=== PATIENT | female | born 1965 | race Caucasian/White ===

== ENCOUNTER 2016-10-21 16:33 | Emergency (ER) | payer OTHER ==
[2016-10-21] MEDS ORDERED: ASPIRIN 81 MG CHEW TAB PO ONE (17:06)
[2016-10-21] MEDS ORDERED: hydrALAZINE HCL 20 MG/1 ML IVP ONE ×2 (17:07→18:03)
[2016-10-21 17:14] LABS: BASOPHILS % 0.8 (0.0-1.5); EOSINOPHILS % 4.6 % (0.0-6.8); MEAN CORPUSCULAR HEMOGLOBIN 28.3 pg (28.0-34.0); MEAN CORPUSCULAR VOLUME 87.3 fl (80.0-100.0); NEUTROPHILS # 5.4 # k/uL (1.4-7.7)
[2016-10-21 17:26] LABS: eGFR (African) > 60; eGFR (Non-African) > 60
--- NOTE | 2016-10-21 19:09 | ED Physician Documentation ---
Chest Pain - HISTORIAN Historian: patient - HPI Stated Complaint: chest pain Chief Complaint: Chest Pain Onset: days ago (2) Timing: sudden onset Duration: sudden-onset Last known Well Date: 10/18/16 Last Known Well Time: 00:00 Context: activity Severity: moderate Quality: tightness Chest Pain Radiation: no radiation Chest Pain Signs/Symptoms: denies: nausea, vomiting, diaphoresis Worsened By: exertion Relieved By: nothing Further Comments: no - ROS CONST: none MS/LYMPH: none GI/: none EYES/ENT: none SKIN/ENDO: none NEURO/PSYCH: none - PAST HX TN risk factors: hypertension DVT/PE Risk Factors: none TAD/AAA risk factors: none Neuro deficit: none GI disease: none Lung disease: none Surgeries/Procedures: none Immunizations: referred to PCP Allergies/Adverse Reactions: Allergies Allergy/AdvReac Type Severity Reaction Status Date / Time No Known Drug Allergies Allergy Verified 10/21/16 16:50 Home Medications: Ambulatory Orders Medication Instructions Recorded NK [NK] 10/21/16 - SOCIAL HX Smoking History: non-smoker Alcohol Use: none Drug Use: none - FAMILY HX Family HX: none - VITAL SIGNS Vital Signs: Vital Signs Temp Pulse Resp BP Pulse Ox 98.4 F 90 19 215/114 92 10/21/16 16:35 10/21/16 19:00 10/21/16 16:35 10/21/16 16:35 10/21/16 19:00 - REVIEWED ASSESSMENTS Nursing Assessment Reviewed: Yes Vitals Reviewed: Yes Progress - Results/Orders Results/Orders: cardiac w/u ordered - Progress Progress: pt. given total of 30 mg hydralazine ivp with reduction of bp to 140/82 with resolution of chest discomfort Critical Care Note - Critical Care Note Total Time (mins): 0 ED Results Lab/Radiology - Lab Results Lab Results: Lab Results 10/21/16 10/21/16 10/21/16 17:10 17:10 17:10 WBC 8.70 K/ul K/ul (4.00-12.00) RBC 4.81 M/ul M/ul (3.90-5.20) Hgb 13.6 g/dL g/dL (12.0-16.0) Hct 42.0 % % (34.5-46.5) MCV 87.3 fl fl (80.0-100.0) MCH 28.3 pg pg (28.0-34.0) MCHC 32.5 g/dL g/dL (30.0-36.0) RDW 12.8 % % (11.3-14.3) Plt Count 301 K/mm3 K/mm3 (130-400) Neut % (Auto) 62.5 % % (39.0-79.0) Lymph % (Auto) 26.9 % % (16.0-50.0) [place] % (Auto) 4.0 % % (0.0-11.0) Eos % (Auto) 4.6 % % (0.0-6.8) Baso % (Auto) 0.8 (0.0-1.5) Neut # (Auto) 5.4 # k/uL # k/uL (1.4-7.7) Lymph # (Auto) 2.3 # k/uL # k/uL (0.6-4.0) [place] # (Auto) 0.4 # k/uL # k/uL (0.0-0.9) Eos # (Auto) 0.4 # k/uL # k/uL (0.0-0.6) Baso # (Auto) 0.1 # k/uL # k/uL (0.0-0.5) Reactive Lymphs % 1.3 % % (0.0-5.0) Reactive Lymphs # 0.1 # k/uL # k/uL (0.0-0.8) Sodium 141 mmol/L mmol/L (136-145) Potassium 3.8 mmol/L mmol/L (3.5-5.0) Chloride 106 mmol/L mmol/L (98-110) Carbon Dioxide 28 mmol/L mmol/L (20-32) BUN 16 mg/dL mg/dL (10-26) Creatinine 1.0 mg/dL mg/dL (0.4-1.5) Estimated Creat Clear 115 Est GFR ( Amer) > 60 (60 - ) Est GFR (Non-Af Amer) > 60 (60 - ) Glucose 155 mg/dL H mg/dL (70-99) Calcium 9.8 mg/dL mg/dL (8.5-10.5) Total Bilirubin 0.7 mg/dL mg/dL (0.2-1.2) AST 17 U/L U/L (0-41) ALT 17 U/L U/L (0-45) Alkaline Phosphatase 81 U/L U/L (46-116) Troponin I < 0.03 ng/mL L ng/mL (0.03-0.06) Total Protein 7.8 g/dL g/dL (6.0-8.5) Albumin 5.0 g/dL g/dL (3.0-5.5) - Radiology Radiology Impressions: cxr neg - Orders Orders: ED Orders Category Date Time Status Continuous EKG monitoring Q30M Care 10/21/16 17:06 Active Continuous Pulse Oximetry Q30M Care 10/21/16 17:[address] IV Lock 1T Care 10/21/16 17:07 Active CHEST 1 VIEW [RAD] Stat Exams 10/21/16 17:06 Taken CBC/PLATELET/DIFF Routine Lab 10/21/16 17:10 Completed CMP Routine Lab 10/21/16 17:10 Completed TROPONIN I (cTnI) Stat Lab 10/21/16 17:10 Completed Aspirin Med 10/21/16 17:06 Discontinued 324 mg PO NOW ONE hydrALAZINE HCL [Apresoline] Med 10/21/16 18:03 Discontinued 10 mg IVP NOW ONE hydrALAZINE HCL [Apresoline] Med 10/21/16 17:07 Discontinued 20 mg IVP NOW ONE EKG WITH COMPARISON Stat Ther 10/21/16 17:06 Ordered Chest Pain Physical Exam - EXAM General Appearance: alert, mild distress EENT: eye inspection normal, ENT inspection normal, pharynx normal, no signs of dehydration, [place], no nystagmus, TM's nml Neck: nml inspection, no carotid bruit Respiratory: no resp. distress, chest non-tender, nml breath sounds CVS: reg. rate & rhythm, no murmur, no gallop, no friction rub, pulses full, pulses equal Abdomen: soft, no organomegaly, normal bowel sounds, no abdominal bruit, no distension, non-tender Skin: warm/dry, normal color Extremities: non-tender, normal range of motion, no evidence of injury, no edema Neuro: oriented X3, CN's nml as tested, motor nml, sensation nml, mood/affect nml, cognition normal Discharge Clincal Impression: Accelerated hypertension Referrals: Jessica Morse MD [Primary Care Provider] - 2 Days Home Medications: Ambulatory Orders NK [NK] 10/21/16 Comments: Discharged in stable condition to family with script for Hydralazine 25 mg p.o. bid #30 no refill Condition: Stable Disposition: 01 HOME, SELF-CARE Decision to Admit: NO Decision Time: 19:09
--- NOTE | 2016-10-21 19:18 | Diagnostic Imaging Report ---
MATT POE [facility] [address] [facility] [address] [place] [address]. [id number] Report Submission Date: Oct 21, 2016 5:27:43 PM CDT Patient Study Name: LOGAN ABRAHAM Date: Oct 21, 2016 5:11:08 PM CDT Modality Type: CR Gender: F Description: CHEST : 61 Institution: [facility] Physician: MATT POE Chest AP portable at 1711 hours of October 21, 2016 . Clinical history: Chest pain for 1 day Normal heart shadow and mediastinum. Clear lungs without acute infiltrate or pleural effusion. No pneumothorax. Impression: No active pulmonary pathology Electronically signed on Oct 21, 2016 5:27:43 PM CDT by: Manish DONOHUE
[2016-10-21 19:32] VITALS: BP 158/86
== END 2016-10-21 19:21 | disposition home or self-care (01) ==
LOC: ED 16:33
DX: I10 Essential (primary) hypertension (principal)
CPT/HCPCS: 71010; 80053; 84484; 85025; J0360; 96374; 96376; 99283; S1016

== ENCOUNTER 2016-10-22 14:51 | Outpatient (CLI) | payer OTHER ==
[2016-10-21 19:32] VITALS: BP 158/86
== END 2016-10-22 14:52 ==
LOC: POD 14:51
PROVIDERS: ATTEND Podiatrist
DX: L60.0 Ingrowing nail (principal); M79.674 Pain in right toe(s)

== ENCOUNTER 2017-02-04 14:12 | Outpatient (CLI) | payer OTHER | END 2017-02-04 14:13 | LOC: POD 14:12 | PROVIDERS: ATTEND Podiatrist | DX: B35.1 Tinea unguium (principal); M79.674 Pain in right toe(s); M79.675 Pain in left toe(s) | CPT/HCPCS: 11721; 99213 ==

== ENCOUNTER 2017-10-25 09:33 | Outpatient (CLI) | payer OTHER ==
--- NOTE | 2017-10-25 13:38 | Diagnostic Imaging Report ---
BUCK PERRY [facility] [address] [facility] [address] Report Submission Date: Oct 25, 2017 10:42:39 AM CDT Patient Study Name: LOGAN ABRAHAM Date: Oct 25, 2017 10:13:22 AM CDT Modality Type: DX Gender: F Description: SPINE : 61 Institution: [facility] Physician: BUCK PERRY Lumbar spine History: Right sciatica AP and lateral projections of the lumbar spine were obtained which demonstrate normal alignment. Small multilevel anterior marginal osteophytes are present. Vertebral body height and intervertebral disc space height is maintained. No spondylolisthesis or spondylolysis is appreciated. The lateral radiographs are somewhat rotated. Impression: Small multilevel anterior marginal osteophytes. Otherwise, no osseous abnormality. Electronically signed on Oct 25, 2017 10:42:39 AM CDT by: Leona DONOHUE
== END 2017-10-25 09:34 ==
LOC: RAD 09:33
PROVIDERS: ATTEND Nurse Practitioner Family
DX: M54.41 Lumbago with sciatica, right side (principal)
CPT/HCPCS: 72100